=== PATIENT | male | born 1995 | race Caucasian/White ===

== ENCOUNTER 2023-03-05 13:56 | Emergency (ER) | payer MEDICAID ==
[~2023-03-05] VITALS: Ht 182.9 cm; Wt 90.7 kg
[2023-03-05 14:00] VITALS: BP 133/77; PULSE 48; RESP 18; TEMP 99.7; O2SAT 98
[2023-03-05 14:22] VITALS: O2SAT 97
[2023-03-05 15:30] LABS: BASOPHILS % (AUTO) 0.4 % (0.0-2.0); EOSINOPHILS # (AUTO) 0.2 K/uL (0-0.4); EOSINOPHILS % (AUTO) 2.6 % (0.0-4.0); HEMATOCRIT 41.3 % (36-52); LYMPHOCYTES # (AUTO) 2.3 K/uL (2.0-11.5); LYMPHOCYTES % (AUTO) 24.9 % (20.5-51.1); MEAN CORPUSCULAR HEMOGLOBIN 29 pg (27-31); MEAN CORPUSCULAR HGB CONC 34 g/dL (33-37); MEAN CORPUSCULAR VOLUME 85.1 fL (80-94); MONOCYTES # (AUTO) 0.6 K/uL (0.8-1.0); MONOCYTES % (AUTO) 6.9 % (1.7-9.3); NEUTROPHILS % (AUTO) 65.2 % (42.2-75.2); PLATELET COUNT (AUTO) 232 K/uL (140-450); RED BLOOD CELL COUNT(AUTO) 4.86 MIL/uL (4.20-6.10); RED CELL DISTRIBUTION WIDTH 14.3 % (11.6-13.7); WHITE BLOOD COUNT (AUTO) 9.3 K/uL (4.8-10.8)
[2023-03-05 15:48] LABS: ALANINE AMINOTRANSFERASE 96 U/L (12-78); ALBUMIN 3.4 g/dL (3.4-5.0); ALCOHOL, BLOOD < 3 mg/dL (<10); ALKALINE PHOSPHATASE 60 U/L (50-136); ASPARTATE AMINOTRANSFERASE 23 U/L (15-37); CALCIUM 8.8 mg/dL (8.5-10.1); CARBON DIOXIDE 29.8 mmol/L (21-32); CHLORIDE 101 mmol/L (98-107); CREATININE 0.8 mg/dL (0.6-1.3); GFR ARICAN-AMERICAN 148 mL/min (>90); GFR NON ARICAN-AMERICAN 122 mL/min (>90); GLUCOSE 102 mg/dL (74-106); POTASSIUM 3.8 mmol/L (3.5-5.1); SODIUM SERUM 139 mmol/L (136-145); TOTAL BILIRUBIN 0.3 mg/dL (0.0-1.0); TOTAL PROTEIN, SERUM 7.7 g/dL (6.4-8.2); UREA NITROGEN, BLOOD 16 mg/dL (7-18)
[2023-03-05 15:49] LABS: ACETAMINOPHEN < 0.5 ug/ml (10-30); SALICYLATE < 2.8 mg/dL (2.8-20.0)
[2023-03-05 16:05] VITALS: O2SAT 97
[2023-03-05] MEDS ORDERED: NALO4SPR NS (16:28)
[2023-03-05 16:40] VITALS: BP 114/75; PULSE 93; RESP 15; TEMP 98.3; O2SAT 98
== END 2023-03-05 16:41 | disposition home or self-care (01) ==
LOC: MED 13:56
DX: T40.2X4A Poisoning by other opioids, undetermined, initial encounter (principal); R00.0 Tachycardia, unspecified; Z79.899 Other long term (current) drug therapy; Y92.89 Other specified places as the place of occurrence of the external cause
CPT/HCPCS: 36415; 71045; 80053; 85025; 93005; 99285; G0480; G0482